=== PATIENT | male | born 1975 | race Two or more races ===

== ENCOUNTER 2021-07-28 12:14 | Emergency (ER) | payer OTHER ==
[~2021-07-28] VITALS: Ht 167.6 cm; Wt 77.1 kg
[2021-07-28] MEDS ORDERED: ORPHENADRINE C100 MG PO (17:06)
[2021-07-28] MEDS ORDERED: KETO10TA2 PO (17:06)
== END 2021-07-28 17:36 ==
LOC: ER 12:14
DX: S33.5XXA Sprain of ligaments of lumbar spine, initial encounter (principal); X58.XXXA Exposure to other specified factors, initial encounter; Y99.0 Civilian activity done for income or pay; Y92.89 Other specified places as the place of occurrence of the external cause